=== PATIENT | female | born 1995 | race Asian ===

== ENCOUNTER 2021-05-19 21:48 | Emergency (ER) | payer OTHER, SELFPAY ==
[2021-05-19 21:57] VITALS: BP 135/70; PULSE 95; RESP 18; TEMP 36.7; O2SAT 100
--- NOTE | 2021-05-19 22:20 | ECG_ITS ---
Measurements Intervals [place] Rate: 81 P: 76 [place]: 166 QRS: 77 QRSD: 94 T: 46 QT: 366 QTc: 427 Interpretive Statements SINUS RHYTHM BASELINE ARTIFACT- I, II, AVR, AVF NORMAL ECG Electronically Signed On 05-20-2021 8:06:55 [employer]CTION by Pascual Glasgow D.O.
[2021-05-19 23:26] VITALS: BP 105/69; PULSE 72
[2021-05-19 23:27] VITALS: BP 106/69; PULSE 84
[2021-05-19 23:29] VITALS: BP 119/78; PULSE 88
[2021-05-19] MEDS: METOCLOPRAMIDE HCL INJ 10 MG/2 ML VIAL IV PUSH (23:48)
[2021-05-19] MEDS: SODIUM CHLORIDE 0.9% IV 1,000 ML 999 ML IV CONT (23:48)
--- NOTE | 2021-05-20 00:02 | ED.GENADULT ---
HPI - General Adult General Chief complaint: Syncope Stated complaint: passed out Time Seen by Provider: 05/19/21 22:34 History of Present Illness HPI narrative: Patient is a 25-year-old female who presents emerged department with chief complaint of syncope. Patient reports she is approximately 8 weeks and reports that she has not had any evaluation in this patient reports that she has had nausea and vomiting not been eating and drinking well the patient states this evening she went from a laying down position to a standing up position got lightheaded and briefly passed out. Patient reports that she has been feeling lightheaded reports that she feels weak. Patient reports symptoms are worsened with eating and drinking and improved with rest. The patient also reports has been having pain in her abdomen and has not had an ultrasound yet to evaluate whether she had intrauterine Related Data Allergies Allergy/AdvReac Type Severity Reaction Status Date / Time No Known Allergies Allergy Verified 05/19/21 21:56 Review of Systems Review of Systems: A 10 system review of systems was completed on the patient and is negative except for what is stated in the HPI. Nursing and ancillary documentation was reviewed. Exam Narrative: GENERAL: Well-appearing, well-nourished, and in no acute distress. HEAD: Normocephalic, atraumatic. EYES: PERRLA and EOMI. ENT: Nares clear, no rhinorrhea or epistaxis. Mucous membranes moist. NECK: Supple. CHEST: Clear to auscultation. No respiratory distress. HEART: Regular rate and rhythm. No murmur heard. Normal peripheral pulses. ABDOMEN: Soft, diffuse mild tenderness to palpation, nondistended, normal active bowel sounds. EXTREMITIES: Normal range of motion. No edema. SKIN: Warm, dry, no rash. NEURO: No focal deficits. Alert and oriented x3. PSYCH: Normal mood and affect. Course Course Emergency Course: The patient is feeling better after IV fluids and antiemetics we have been attempting to contact the fiber optics technician that is on-call with no response. The patient reports that she has to go oyster picker her child and is feeling better and is choosing to leave the hospital and follow-up with her PLANT SENIOR MANAGER it was explained to the patient that if she is having an ectopic that this could be missed by not performing the ultrasound patient expressed understanding. Vital Signs Vital signs: Vital Signs Temperature 36.7 C 05/19/21 21:57 Pulse Rate 95 05/19/21 21:57 Respiratory Rate 18 05/19/21 21:57 Blood Pressure 135/70 05/19/21 21:57 Pulse Oximetry 100 05/19/21 21:57 Temperature 36.7 C 05/19/21 21:57 Pulse Rate 88 05/19/21 23:29 Respiratory Rate 18 05/19/21 21:57 Blood Pressure 119/78 05/19/21 23:29 Pulse Oximetry 100 05/19/21 21:57 Medical Decision Making Vital Signs Vital Signs: Vital Signs Temperature 36.7 C 05/19/21 21:57 Pulse Rate 95 05/19/21 21:57 Respiratory Rate 18 05/19/21 21:57 Blood Pressure 135/70 05/19/21 21:57 Pulse Oximetry 100 05/19/21 21:57 Temperature 36.7 C 05/19/21 21:57 Pulse Rate 88 05/19/21 23:29 Respiratory Rate 18 05/19/21 21:57 Blood Pressure 119/78 05/19/21 23:29 Pulse Oximetry 100 05/19/21 21:57 Lab Data Result diagrams: 05/19/21 23:46 05/19/21 23:45 Labs: Lab Results 05/19/21 05/19/21 05/19/21 Range/Units 23:45 23:45 23:45 WBC (4.5-10.0) K/mm3 RBC (4.2-5.4) M/mm3 Hgb (12.0-15.0) g/dL Hct (37.0-47.0) % MCV (80-100) fl MCH (26-34) pg MCHC (32-36) g/dl RDW (11.5-14.5) % Plt Count (150-375) k/mm3 MPV (7.4-10.4) fl Immature Gran % (Auto) (0-0.5) % Neut % (Auto) (45.5-73.1) % Lymph % (Auto) (18.3-44.2) % [place] % (Auto) (2.6-8.5) % Eos % (Auto) (0-4.4) % Baso % (Auto) (0.2-1.2) % Lymph # (Auto) (0.9-3.2) K/mm3 [place] # (Auto) (0.1-0.6) K/mm3
[2021-05-20 00:22] LABS: Basophils Absolute Auto 0.1 K/mm3 (0.0-0.1); Basophils Percent Auto 0.5 % (0.2-1.2); Eosinophils Percent Auto 0.2 % (0-4.4); Hemoglobin 11.9 g/dL (12.0-15.0); Immature Granulocyte Absolute 0.03 K/mm3 (0.00-0.031); Immature Granulocyte Percent A 0.3 % (0-0.5); Lymphocytes Absolute Auto 1.54 K/mm3 (0.9-3.2); Lymphocytes Percent Auto 13.9 % (18.3-44.2); Mean Corpuscular Hemoglobin 30.4 pg (26-34); Mean Corpuscular Volume 89.5 fl (80-100); Mean Platelet Volume 10.6 fl (7.4-10.4); Monocytes Absolute Auto 0.6 K/mm3 (0.1-0.6); Monocytes Percent Auto 5.6 % (2.6-8.5); Neutrophils Absolute Auto 8.8 K/mm3 (1.3-6.7); Neutrophils Percent Auto 79.5 % (45.5-73.1); Platelet Count Result 197 k/mm3 (150-375); Red Blood Count 3.91 M/mm3 (4.2-5.4); Red Cell Distribution Width 11.2 % (11.5-14.5); White Blood Count 11.1 K/mm3 (4.5-10.0)
[2021-05-20 00:24] LABS: Alanine Aminotransferase 15 U/L (4-35); Albumin Level 4.9 g/dL (3.5-5.1); Alkaline Phosphatase 49 U/L (38-126); Anion Gap 12 mmol/L (8-16); Aspartate Amino Transferase 25 U/L (14-36); Bilirubin,Total 0.7 mg/dL (0.2-1.3); Blood Urea Nitrogen 9 mg/dL (7-17); Calcium 9.7 mg/dL (8.4-10.2); Carbon Dioxide 21 mmol/L (22-30); Chloride 101 mmol/L (98-107); Estimated CRCL calculation 137 ml/min; Estimated Glomerular Filt Rate > 60; Glucose 90 mg/dL (65-110); Lipase 65 U/L (23-300); Magnesium 1.9 mg/dL (1.6-2.3); Potassium 3.6 mmol/L (3.4-5.0); Sodium 134 mmol/L (137-145)
--- NOTE | 2021-05-20 00:32 | PC.NURSE ---
multi attempts to collect urine spec pt states she can not go right now
[2021-05-20 01:28] LABS: Add Urine Microscopic? YES; Appearance Urine Clear (Clear); Bacteria Urine Trace /hpf; Bilirubin Urine Negative (Negative); Blood Urine Negative (Negative); Color Urine Yellow (Yellow); Glucose Urine UA Negative (Negative); Ketones Urine 2+ mg/dL (Negative); Leukocyte Esterase Ur Negative LEU/UL (Negative); Mucus Urine Rare /lpf; Nitrate Urine Negative (Negative); Protein Urine Negative (Negative); RBC Urine 0-2 /hpf (0-2); Specific Grav Ur 1.016 (1.001-1.035); Squamous Epithelial Cell Urine Moderate /hpf (Few); Urobilinogen Urine Negative mg/dL (<2.0); WBC Urine 0-3 /hpf
[2021-05-20 02:30] VITALS: BP 99/59; PULSE 60; RESP 18; O2SAT 100
== END 2021-05-20 02:31 | disposition home or self-care (01) ==
PROVIDERS: Emergency Provider Emergency Medicine; PCP Physician Assistant
DX: O26.891 Other specified pregnancy related conditions, first trimester (principal); R55 Syncope and collapse; O21.9 Vomiting of pregnancy, unspecified; Z3A.08 8 weeks gestation of pregnancy
CPT/HCPCS: 36415; 80053; 81001; 81025; 83690; 83735; 84702; 85025; 86850; 86900; 86901; 93005; 96361; 96374; 99284; J2765; J7030

== ENCOUNTER 2021-08-15 16:57 | Emergency (ER) | payer OTHER, SELFPAY ==
[2021-08-15 17:00] VITALS: BP 118/80; PULSE 100; RESP 18; TEMP 36.2; O2SAT 100
[2021-08-15 17:44] LABS: Bacteria Urine Trace /hpf; Mucus Urine Rare /lpf; RBC Urine 0-2 /hpf (0-2); Squamous Epithelial Cell Urine Occasional /hpf (Few); WBC Urine >75 /hpf
[2021-08-15 17:48] LABS: Appearance Urine Slightly Cloudy (Clear); Bilirubin Urine Negative (Negative); Blood Urine Negative (Negative); Color Urine Yellow (Yellow); Glucose Urine UA Negative (Negative); Ketones Urine Negative (Negative); Leukocyte Esterase Ur 2+ LEU/UL (Negative); Nitrate Urine Negative (Negative); Protein Urine Negative (Negative); Specific Grav Ur 1.015 (1.001-1.035); Urobilinogen Urine 0.2 mg/dL (<2.0)
[2021-08-15 17:49] LABS: Add Urine Microscopic? YES
--- NOTE | 2021-08-15 18:09 | ED.PREGNANCY ---
HPI - General Chief complaint: CORPORATE SERVICES MANAGER Stated complaint: painful urination Time Seen by Provider: 08/15/21 17:57 Source: patient Mode of arrival: ambulatory Limitations: no limitations History of Present Illness HPI Narrative: This is a 25-year-old , about 20 weeks , that presents to the emergency department for STD concern. Reports over the last couple days she has discomfort with urination and some abnormal discharge. She has had a recent sexual partner that told her he tested positive for gonorrhea. She is unsure if they have used a condom with every sexual encounter. Everything otherwise has progressed normally this . Her OB is Dr. Easton in [place]. Denies fever, pelvic pain, or vaginal bleeding. Related Data Allergies Allergy/AdvReac Type Severity Reaction Status Date / Time No Known Allergies Allergy Verified 08/15/21 18:16 Review of Systems Review of Systems: CONSTITUTIONAL: Denies fever GASTROINTESTINAL: Denies abdominal pain, nausea, vomiting GENITOURINARY: Reports dysuria. Denies hematuria. SKIN: Denies rash All systems reviewed & are unremarkable except as noted in HPI and below PMFSH Past Medical History Medical History (Updated 08/15/21 @ 19:10 by Mary Beth Babcock PA-C) No active medical problems Social History Social History (Updated 08/15/21 @ 18:14 by Mary Beth Babcock PA-C) Substance use: never Exam Narrative: GENERAL: Well-appearing, well-nourished, and in no acute distress. HEAD: Normocephalic, atraumatic. EYES: EOMI. CHEST: Clear to auscultation. No respiratory distress. No wheezes rales or rhonchi HEART: Regular rate and rhythm. No murmur heard. Normal peripheral pulses. ABDOMEN: Gravid, nontender, nondistended, normal active bowel sounds. EXTREMITIES: Normal range of motion. No edema. SKIN: Warm, dry, no rash. NEURO: No focal deficits. Alert and oriented x3. PSYCH: Normal mood and affect PELVIC: Normal external genitalia. Cervix with mild irritation. Moderate amount of green/yellow cervical discharge Course Vital Signs Vital signs: Vital Signs Temperature 97.2 F L 08/15/21 17:00 Pulse Rate 100 08/15/21 17:00 Respiratory Rate 18 08/15/21 17:00 Blood Pressure 118/80 08/15/21 17:00 Pulse Oximetry 100 08/15/21 17:00 Temperature 97.2 F L 08/15/21 17:00 Pulse Rate 100 08/15/21 17:00 Respiratory Rate 18 08/15/21 17:00 Blood Pressure 118/80 08/15/21 17:00 Pulse Oximetry 100 08/15/21 17:00 MDM - OB/Uterine Contractions MDM Narrative Medical decision making narrative: Patient presents to the emergency department for recent exposure to gonorrhea. She does report some discomfort with urination as well as abnormal discharge. Patient is currently 20 weeks . Otherwise has had no problems with her . She recently had an OB appointment about a week ago. She is feeling baby move. She denies any vaginal bleeding. Noted to have heart tones in the 150s. She does have some yellow discharge on exam. UA with 2+ leuk esterase and greater than 75 white blood cells. Trichomonas is negative. Chlamydia, gonorrhea and general genital culture are pending as is urine culture. Spoke with patient's on-call OB, Dr. Farrell. Patient will be presumptively treated for gonorrhea and chlamydia. Will follow-up for further management and results of testing. Patient is stable and felt appropriate for further outpatient evaluation. She was given warnings to return to the ER Lab Data Attestation: I reviewed the patient's lab results. Labs: Lab Results 08/15/21 08/15/21 08/15/21 Range/Units 17:10 18:26 18:26 Urine Color Yellow (Yellow) Urine Appearance Slightly cloudy (Clear) Urine pH 7.0 (5.0-9.0) Ur Specific [place] 1.015 (1.001-1.035) Urine Protein Negative (Negative) mg/dL Urine Glucose (UA) Negative (Negative) mg/dL Urine Ketones Negative (Negative) mg/dL Ur Blood (Man) Negativ
[2021-08-15] MEDS: cefTRIAXone 1 GM VIAL 0.5 GM IM (19:37)
[2021-08-15] MEDS: AZITHROMYCIN 250 MG TABLET 1000 MG PO (19:38)
== END 2021-08-15 19:45 | disposition home or self-care (01) ==
PROVIDERS: Physician Assistant; Emergency Provider Family Medicine; PCP Physician Assistant
DX: Z20.2 Contact with and (suspected) exposure to infections with a predominantly sexual mode of transmission (principal); Z33.1 Pregnant state, incidental
CPT/HCPCS: 81001; 87070; 87086; 87491; 87591; 87808; 96372; 99284; A9270; J0696